=== PATIENT | male | born 1975 | race African-American/Black ===

== ENCOUNTER 2024-09-17 15:06 | Emergency (ER) | payer MEDICAID, OTHER ==
[~2024-09-17] VITALS: Ht 182.9 cm; Wt 91.0 kg
[2024-09-17 15:13] VITALS: O2SAT 98
[2024-09-17] MEDS ORDERED: KETOROLAC 15MG/ML VIAL IM ONE (16:00)
[2024-09-17] MEDS ORDERED: NAPR-1176 MT (17:34)
[2024-09-17] MEDS ORDERED: LIDO-53 TP (17:34)
[2024-09-17 17:49] VITALS: TEMP 36.8; O2SAT 98
[2024-09-17] MEDS: LIDOCAINE 5% PATCH TOP SCH (17:52)
[2024-09-17 17:53] VITALS: BP 130/90; PULSE 89; RESP 18
[2024-09-17] MEDS: KETOROLAC 15MG/ML VIAL IM SCH (17:53)
== END 2024-09-17 17:54 | disposition home or self-care (01) ==
LOC: ER 15:06
DX: M54.2 Cervicalgia (principal); R51.9 Headache, unspecified; Z79.1 Long term (current) use of non-steroidal anti-inflammatories (NSAID); V98.8XXA Other specified transport accidents, initial encounter; Y93.89 Activity, other specified; Y92.410 Unspecified street and highway as the place of occurrence of the external cause; Y99.8 Other external cause status
CPT/HCPCS: 99285; 70450; 72125; 96372; J1885